=== PATIENT | male | born 1950 | race Two or more races ===

== ENCOUNTER 2018-10-03 10:03 | Outpatient (CLI) | payer OTHER ==
[~2018-10-03 10:03] MED LIST: HYZAAR 50/12.51 TAB; PROCARDIA90 MG/BLIS PO
== END 2018-10-03 10:11 | disposition home or self-care (01) ==
LOC: RAD 501 10:03
DX: M54.17 Radiculopathy, lumbosacral region (principal)

== ENCOUNTER 2021-02-03 08:22 | Emergency (ER) | payer OTHER ==
[~2021-02-03] VITALS: Ht 167.6 cm; Wt 96.6 kg
[2021-02-03] MEDS ORDERED: FORTAMET500 MG PO (08:41)
[2021-02-03] MEDS ORDERED: NEURONTIN300 MG (08:42)
[2021-02-03] MEDS ORDERED: HYDROCHLOROTHIA25 MG PO (08:42)
[2021-02-03] MEDS ORDERED: MAGNESIUM250 M1 PO (08:42)
[2021-02-03] MEDS ORDERED: OMEGA 3 500 SO1 EACH PO (08:43)
[2021-02-03] MEDS ORDERED: ATARAX25 MG PO (10:35)
[2021-02-03] MEDS ORDERED: NORFLEX100MG PO (10:35)
[2021-02-03] MEDS ORDERED: ZOVIRAX800 MG PO (10:35)
== END 2021-02-03 10:50 | disposition home or self-care (01) ==
LOC: ER 08:22
DX: M25.552 Pain in left hip (principal); R23.8 Other skin changes; B02.9 Zoster without complications

== ENCOUNTER 2021-06-04 07:16 | Outpatient (CLI) | payer OTHER ==
[~2021-06-04 07:16] MED LIST changes: +ATARAX25 MG PO; +FORTAMET500 MG PO; +HYDROCHLOROTHIA25 MG PO; +MAGNESIUM250 M1 PO; +NEURONTIN300 MG; +NORFLEX100MG PO; +OMEGA 3 500 SO1 EACH PO; +ZOVIRAX800 MG PO
== END 2021-06-04 07:17 | disposition home or self-care (01) ==
LOC: NUCLEAR 07:16
PROVIDERS: ATTEND Internal Medicine Cardiovascular Disease
DX: R07.89 Other chest pain (principal); I25.10 Atherosclerotic heart disease of native coronary artery without angina pectoris; I50.1 Left ventricular failure, unspecified
CPT/HCPCS: 78452; 93017; A9500; J0153

== ENCOUNTER 2021-06-04 07:29 | Outpatient (CLI) | payer OTHER | END 2021-06-04 16:52 | disposition home or self-care (01) | LOC: LAB 07:29 | PROVIDERS: ATTEND Internal Medicine | DX: Z20.828 Contact with and (suspected) exposure to other viral communicable diseases (principal); B34.1 Enterovirus infection, unspecified ==

== ENCOUNTER 2023-05-29 15:40 | Emergency (ER) | payer OTHER ==
[~2023-05-29] VITALS: Ht 170.2 cm; Wt 85.7 kg
[2023-05-29 18:15] LABS: HEMATOCRIT 40.9 % (39.0-48.0); HEMOGLOBIN 13.5 g/dL (13-16.00); MEAN CELL VOLUME 85.4 fL (80.0-100.00); MEAN CORPUSCULAR HEMOGLOBIN 28.2 pg (27.00-32.0); PLATELET COUNT 389 K/uL (150-450); RED BLOOD COUNT 4.79 M/uL (4.00-6.00); RED CELL DISTRIBUTION WIDTH 14.8 % (11.5-14.5)
[2023-05-29] MEDS ORDERED: AZITHROMYCIN500 MG PO (19:36)
[2023-05-29] MEDS ORDERED: IPRATROPIU0.2 MG/1 M IH (19:36)
[2023-05-29] MEDS ORDERED: BUDESONIDE0.5 MG/2 M IH (19:36)
[2023-05-29] MEDS ORDERED: DIABETIC TUSSI118 M3 PO (19:37)
[2023-05-29] MEDS ORDERED: ALBUTEROL1.25 MG/3 IH (19:48)
[2023-05-29 22:58] LABS: ABG PH 7.511 (7.35-7.45); ABG PO2 76.6 mmHg (80-100); ABG pCO2 28.8 mmHg (35-45); BASE EXCESS 0.8 mmol/l; BICARBONATE 22.5 mmol/l (23-25); SaO2 96.6 %; Tco2 23.4 mmol/l; allen test SATISFACTORY; o2 21 %; puncture site RADIAL RIGHT
== END 2023-05-29 22:42 | disposition home or self-care (01) ==
LOC: ER 15:41
PROVIDERS: Nurse Practitioner Family
DX: J06.9 Acute upper respiratory infection, unspecified (principal); J98.8 Other specified respiratory disorders; B97.89 Other viral agents as the cause of diseases classified elsewhere; E11.9 Type 2 diabetes mellitus without complications; Z79.84 Long term (current) use of oral hypoglycemic drugs; I10 Essential (primary) hypertension; Z88.2 Allergy status to sulfonamides; Z87.09 Personal history of other diseases of the respiratory system; Z20.822 Contact with and (suspected) exposure to COVID-19

== ENCOUNTER 2025-03-09 21:24 | Emergency (ER) | payer OTHER ==
[~2025-03-09] VITALS: Ht 167.6 cm; Wt 95.3 kg
[~2025-03-09 21:24] MED LIST changes: +ALBUTEROL1.25 MG/3 IH; +AZITHROMYCIN500 MG PO; +BUDESONIDE0.5 MG/2 M IH; +COZAAR100 MG; +CRESTOR10 MG; +DIABETIC TUSSI118 M3 PO; +GABAPENTIN100 M2; +HYDRALAZINE HCL25 MG; +HYDRALAZINE HCL50 MG; +IPRATROPIU0.2 MG/1 M IH; +LASIX20 MG; +NIFEDIPINE20 MG; +TRICOR145 MG
[2025-03-09] MEDS ORDERED: HYDROCODONE/CHLORPHEN P-STIREX 5 ML ML PO ONE (23:00)
[2025-03-09] MEDS ORDERED: IPRATROPIUM BROMIDE 0.5 MG/2.5 ML AMPUL.NEB IH SCH (23:00)
[2025-03-09] MEDS ORDERED: ACETAMINOPHEN 500 MG GEL..CAP PO ONE (23:00)
[2025-03-09] MEDS ORDERED: LEVALBUTEROL HCL 1.25 MG/3 ML SOLUTION IH SCH (23:00)
[2025-03-09] MEDS ORDERED: 0.9 % SODIUM CHLORIDE 1,000 ML IV SCH (23:00)
[2025-03-09] MEDS ORDERED: FAMOTIDINE/PF 20 MG in 0.9 % SODIUM CHLORIDE 8 ML IV PUSH ONE (23:00)
[2025-03-09] MEDS ORDERED: METHYLPREDNISOLONE SOD SUCC 125 MG VIAL IV ONE (23:00)
[2025-03-10 00:32] LABS: BASO % 0.4 % (0.1-1.2); EOS # 0.16 (0.04-0.54); EOS % 1.7 % (0.7-7.0); LYMPH # 1.45 (1.18-3.74); LYMPH % 15.8 % (19.3-53.1); MEAN PLATELET VOLUME 9.80 fl (9.4-12.4); MONO # 1.44 (0.24-0.82); MONO % 15.7 % (4.7-12.5); NEUT # 6.03 (1.56-6.13); NEUT % 65.5 % (34.0-71.1); RED CELL DISTRIBUTION WIDTH 15.0 % (11.6-14.4)
[2025-03-10 01:02] LABS: ALT/SGPT 31 U/L (12-78); AST/SGOT 26 U/L (15-37); GLUCOSE FASTING 110 mg/dL (65-100); OSMOLALITY SERUM 288 MOSM/KG (275-295)
[2025-03-10 01:05] LABS: BILIRUBIN TOTAL 0.46 mg/dL (0.3-1.2); CREATININE SERUM 1.66 mg/dL (0.70-1.30); GFR 40.70
[2025-03-10 01:46] LABS: COVID-19 AG NEGATIVE (NEGATIVE)
[2025-03-10] MEDS ORDERED: OSELTAMIVIR PHO30 MG PO (03:29)
[2025-03-10] MEDS ORDERED: BUDESONIDE0.5 MG/2 M IH (03:29)
== END 2025-03-10 03:46 | disposition home or self-care (01) ==
LOC: ER 21:25
PROVIDERS: General Practice
DX: B34.9 Viral infection, unspecified (principal); J10.1 Influenza due to other identified influenza virus with other respiratory manifestations; R05.9 Cough, unspecified; Z20.822 Contact with and (suspected) exposure to COVID-19; I10 Essential (primary) hypertension; E11.9 Type 2 diabetes mellitus without complications; Z79.84 Long term (current) use of oral hypoglycemic drugs; Z88.2 Allergy status to sulfonamides; Z88.6 Allergy status to analgesic agent